=== PATIENT | male | born 1975 | race Hispanic/Latino ===

== ENCOUNTER 2018-11-13 07:54 | Emergency (ER) | payer BC ==
--- NOTE | 2018-11-13 09:57 | CT ---
CT CERVICAL SPINE WITHOUT CONTRAST: History: Neck pain, trauma. Comparison: None. Technique: CT cervical spine is performed without contrast. Re-formatted images are submitted for int erpretation. FINDINGS: Straightening of the normal cervical lordosis may be due to patient position, muscle spasm or cervica l collar. Current study is not tailed to assess for ligamentous injury. No craniocervical dissociation . Appropriate alignment of the lateral masses of C1 and C2. There is a ppropriate alignment of the facets. Intact odontoid process. Visualized soft tissues are unremarkable. Upper mediastinum and lung apices are unremarkable. Varying degrees of central canal stenosis and/or oral foraminal narrowing on the basis of generative change. Cervical spine vertebral body height is maintained. There is no fracture. IMPRESSION: 1. No cervical spine fracture. 2. Straightening of the normal cervical lordosis as detailed above. If there is concern for ligamento us injury, consider MRI. POS: [facility]
== END 2018-11-13 10:12 | disposition home or self-care (01) ==
LOC: NAV ERS 07:54
DX: M54.2 Cervicalgia (principal); V43.52XA Car driver injured in collision with other type car in traffic accident, initial encounter
CPT/HCPCS: 72125; G0390

== ENCOUNTER 2021-03-20 10:58 | Outpatient (CLI) | payer BC | END 2021-03-20 10:59 | disposition home or self-care (01) | LOC: NAV RAD 10:58 | PROVIDERS: ATTEND Family Medicine | DX: M79.89 Other specified soft tissue disorders (principal); M77.8 Other enthesopathies, not elsewhere classified; Z84.0 Family history of diseases of the skin and subcutaneous tissue ==

== ENCOUNTER 2021-08-07 17:13 | Emergency (ER) | payer BC ==
[2021-08-07] MEDS ORDERED: Lidocaine 1% (PF) 30 ML VIAL ONE (17:30)
[2021-08-07] MEDS ORDERED: Boostrix 0.5 ML (Tdap) VIAL ONE (17:34)
[2021-08-07] MEDS ORDERED: Bacitracin 1 PK ONE (17:49)
== END 2021-08-07 17:58 | disposition home or self-care (01) ==
LOC: NAV ERS 17:13
DX: S81.812A Laceration without foreign body, left lower leg, initial encounter (principal); W45.8XXA Other foreign body or object entering through skin, initial encounter
CPT/HCPCS: 12002; 90471; 90715; J2001